=== PATIENT | male | born 1965 | race Caucasian/White ===

== ENCOUNTER 2016-10-21 17:05 | Inpatient (IN) | payer OTHER ==
--- NOTE | ~2016-10-21 | DS ---
Discharge Summary [facility] [address] [place]. [address] NAME: CARMINE QUINTERO : 61 STATUS : DIS IN PAT#: [id number] AGE: 51 ADM/REG DATE : 10/21/16 MR#: [id number] REPORT SERV DATE: 11/12/16 DICTATED BY: FARHAT DOMINGUEZ DATE: 11/11/16 REPORT STATUS : Draft TRANSCRIBED BY: MODMary Ann DATE: 11/11/16 Data Collection from hospitalization DISCHARGE DIAGNOSES: 1. Acute anterolateral ST-elevation myocardial infarction secondary to acute stent thrombosis. 2. Left ventricular thrombus. 3. Ischemic cardiomyopathy. 4. Medication noncompliance. 5. Acute kidney injury. 6. Depression. 7. Tobacco use. 8. Coronary artery disease. CONSULTATIONS: None. PROCEDURES PERFORMED: Cardiac catheterization and percutaneous coronary intervention on 10/21/2016. MEDICATIONS: Aspirin 81 mg daily, Lipitor one tablet at bedtime, Plavix 75 mg daily, Lovenox 120 mg subcutaneously twice a day, Prinivil 5 mg daily, Lopressor 50 mg twice a day, Naprosyn 500 mg twice a day, Nitrostat 0.4 mg sublingually as needed, Zyprexa 15 mg at bedtime, Protonix 40 mg before breakfast, Desyrel 100 mg at bedtime as needed, and Coumadin 7.5 mg every evening. CONDITION AT DISCHARGE: Stable. DISPOSITION: The patient was discharged home on a low-sodium, low-cholesterol Mediterranean diet with activities as instructed. He would follow up with Dr. Won Jimenez on 12/10/2016. He would follow up with me one month following discharge if approved by the MA. He was to have his INR level checked at the [facility] on 10/29/2016. HOSPITAL COURSE: This is a 51-year-old man who had recently undergone percutaneous coronary intervention to the proximal left anterior descending, performed approximately one week prior to this admission by Dr. Stacie Monte. The patient developed substernal chest pain that began on the afternoon prior to this admission and progressively worsened with the abrupt onset of severe chest pain at approximately 1 to 2 o'clock p.m. on the day of this admission. The patient had recently been diagnosed with coronary artery disease. He had a history of depression, but denies any previous cardiovascular history. He was brought by EMS to [facility]. Apparently, there was some type of acute coronary syndrome, although according to his description, he was not actually experiencing a STEMI at that time. However, he was taken for urgent coronary angiography. He was apparently found to have disease of the proximal LAD and a stent was placed in the proximal LAD. The patient reports that he was monitored in the ICU for about three days. He had been discharged home on anti-platelet agents, but the patient reports he did not get the prescription filled due to the expense. He has essentially been on no medications other than aspirin since his hospital discharge from [facility] one week prior to this admission. The patient reports that he had the onset of chest soreness on the day prior to this admission. He did not seek Discharge Summary [address] [address] NAME: CARMINE QUINTERO : 61 STATUS : DIS IN PAT#: [id number] AGE: 51 ADM/REG DATE : 10/21/16 MR#: [id number] REPORT SERV DATE: 11/12/16 DICTATED BY: FARHAT DOMINGUEZ DATE: 11/11/16 REPORT STATUS : Draft TRANSCRIBED BY: SHANAE DATE: 11/11/16 immediate medical attention for this. He reports that the pain waxed and waned overnight, but became continuous at approximately 1:00 p.m. on the day of this admission. He reported the pain had progressively worsened and became severe and unremitting. This prompted a call to EMS. The patient was diagnosed with acute anterior ST-segment elevation myocardial infarction in the field. He was brought to [facility] to undergo primary percutaneous coronary intervention. He was admitted to the hospital at this time for further evaluation and treatment. Upon admission, the patient was taken to the cardiac solder making laborer where he underwent the above- mentioned procedure. He tolerated this well, and there were no complications. He was found to have acute stent thrombosis of the proximal LAD stent, this involved the first diagonal branch. The patient had a left dominant coronary system. No other significant occlusive disease was noted. He had undergone aspiration thrombectomy and intravascular ultrasound imaging of the LAD stent. This was found to be relatively undersized with roughly 3-3.5 mm stent within a 4.5 to 5 mm vessel. The stent was treated with a noncompliant balloon of 4.5 mm diameter to a high-pressure. There was religious of SARAHI grade 2-3 flow through the entire vessel with the exception of the apical LAD. This continued to exhibit no reflow phenomenon. There was evidence of a distal wire perforation on final angiography. Bedside ultrasound approximately one hour following the completion of percutaneous coronary intervention had revealed minimal apical effusion which did not appear to be of hemodynamic significant. There did appear to be significant hypokinesis of the mid and apical anterior myocardium. The patient was loaded with Brilinta. He was going to be continued on aspirin 81 mg daily indefinitely. He was going to be started on atorvastatin at bedtime. Metoprolol was also started. We would consider the addition of lisinopril 24 hours following the percutaneous coronary intervention if his renal function would tolerate this. A transthoracic echocardiogram was requested. Angiomax was discontinued. The patient was strongly encouraged to discontinue cigarette smoking. The following day, he denied any chest pain overnight or that morning. He denied shortness of breath or orthopnea. He had been mildly dyspneic with sitting up. The patient was placed on a low-sodium diet with a 2- liter fluid restriction. On 10/23/2016, INR level was 1.2. The patient had no specific complaints. He has no shortness of breath. He did have some waxing and waning chest pain. He was in a normal sinus rhythm. The patient has an ejection fraction of 35% on echocardiogram. A LifeVest was ordered. Creatinine level had increased to 1.39. On 10/24/2016, he had some chest pain during the night, which resolved. He had no other complaints. Creatinine was 1.26. His lungs remained clear. Warfarin continued. Acute kidney injury was improving. Over the next couple of days, he continued to do well. He still had some waxing and waning chest pressure. He was ambulating without difficulty. Discharge planning was performed. Lisinopril was started. Plavix was going to begin. Lovenox and Coumadin were continued. On 10/26/2016, he had no chest pain or shortness of breath. He had no palpitations. He was alert and cooperative. A LifeVest was placed. Discharge instructions were given. Due to his improved and stable condition, he was discharged home with the above-stated instructions. Information collected by: Marcelle Lopez I submit the above information as my discharge summary. Discharge Summary [facility] [id number] [address] NAME: CARMINE QUINTERO : 61 STATUS : DIS IN PAT#: [id number] AGE: 51 ADM/REG DATE : 10/21/16 MR#: [id number] REPORT SERV DATE: 11/12/16 DICTATED BY: FARHAT DOMINGUEZ DATE: 11/11/16 REPORT STATUS : Draft TRANSCRIBED BY: SHANAE DATE: 11/11/16 TG/SHANAE Farhat Dominguez MD / [id number] CC: Farhat Dominguez MD
--- NOTE | ~2016-10-21 | HP ---
History And Physical [facility] [address] [place]. [address] NAME: CARMINE CEDENO : 61 STATUS : ADM IN [facility]#: [id number] AGE: 51 ADM/REG DATE : 10/21/16 MR#: [id number] REPORT SERV DATE: 10/22/16 DICTATED BY: FARHAT DOMINGUEZ DATE: 10/21/16 REPORT STATUS : Draft TRANSCRIBED BY: MODL DATE: 10/21/16 DATE OF ADMISSION: 10/21/2016 CARDIOLOGY ADMISSION HISTORY AND PHYSICAL IDENTIFYING DATA: The patient is a 51-year-old man with a recent percutaneous coronary intervention to the proximal left anterior descending performed approximately one week ago by Dr. Stacie Monte. CHIEF COMPLAINT: Substernal chest pain starting yesterday afternoon and progressively worsening with abrupt onset of severe chest pain at approximately 1 to 2 o'clock p.m. today. HISTORY OF PRESENT ILLNESS: Mr. Cedeno is a 51-year-old man who was recently diagnosed with coronary heart disease. The patient does have a history of depression, but denies any previous cardiovascular history. The patient was apparently brought by EMS to [facility]. The patient apparently had some type of acute coronary syndrome, though according to his description, he was not actually experiencing a STEMI at that time. However, the patient was taken for urgent coronary angiography. He was apparently found to have disease of the proximal left anterior descending, and a stent was placed in the proximal left anterior descending. The patient reports that he was monitored in the ICU for about three days. He was discharged to home on an anti-platelet agent, but the patient did not get the prescription filled due to expense. He essentially has been on no medications other than aspirin since hospital discharge from [place] about one week ago. The patient reports that he had onset of a chest soreness yesterday. He did not seek immediate medical attention for this. He reports the pain waxed and waned overnight, but became continuous at approximately 1300 hours today. The patient reports that the pain progressively worsened over the next 1 to 2 hours and became severe and unremitting. This prompted a call to emergency medical services. The patient was diagnosed with an acute anterior ST-segment elevation myocardial infarction in the field. He was brought to [facility] to undergo primary percutaneous coronary intervention. PAST MEDICAL HISTORY: Significant for depression and recently diagnosed coronary artery disease as noted above. Otherwise negative. PAST SURGICAL HISTORY: The patient reports he underwent cholecystectomy about 10 years ago. He denies any other significant surgical history. FAMILY HISTORY: The patient denies any significant family history of coronary heart disease or sudden cardiac . SOCIAL HISTORY: The patient is a one-pack per day smoker for 33 years. The patient denies any significant alcohol use. He does use marijuana on occasion. He denies any other recreational drugs. ALLERGIES: THE PATIENT REPORTS NO KNOWN MEDICATION ALLERGIES. History And Physical [address] [address] NAME: CARMINE CEDENO : 61 STATUS : ADM IN PAT#: [id number] AGE: 51 ADM/REG DATE : 10/21/16 MR#: [id number] REPORT SERV DATE: 10/22/16 DICTATED BY: FARHAT DOMINGUEZ DATE: 10/21/16 REPORT STATUS : Draft TRANSCRIBED BY: SHANAE DATE: 10/21/16 HOME MEDICATIONS: These include trazodone, and an antidepressant that the patient cannot remember the name of. REVIEW OF SYSTEMS: A complete 12-system review was performed. This is noncontributory except for the pertinent positives and negatives noted in the history of present illness above. PHYSICAL EXAMINATION: VITAL SIGNS: The patient is afebrile. Blood pressure is approximately 100/65 mmHg, heart rate is 90 beats per minute and regular with frequent ectopy, respirations 20 with oxygen saturation 94% on room air. CONSTITUTIONAL: The patient is an overweight to borderline obese white man, who is extremely uncomfortable on initial presentation, though he was not in acute respiratory distress. EYES: PERRL, EOMI, clear conjunctiva. HEAD/MNT: NCAT with moist mucous membranes and grossly normal hard and soft palate. NECK: Supple with no obvious thyromegaly or lymphadenopathy CARDIOVASCULAR: There is a regular rhythm with a normal S1 and a physiologically split second heart sound. Jugular venous pressure could not be accurately estimated due to the patient's positioning. The patient has a 2+ right radial pulse. PULMONARY: Grossly clear to auscultation bilaterally with no wheezing, rales, or rhonchi. No dullness to percussion. ABDOMINAL: Soft, non-tender, non-distended with no hepatosplenomegaly noted. EXTREMITIES: There is no clubbing, cyanosis, or edema noted. MUSCULOSKELETAL: Grossly normal strength and range of motion in all extremities INTEGUMENTARY: Skin appears intact with no bruises, wounds or active lesions noted NEURO/PSYC: Alert and oriented x3, with no dysarthria, facial droop or lateralizing weakness noted. DIAGNOSTIC DATA: 12-lead EKG: The patient's 12-lead EKG performed by EMS shows an acute anterior ST-segment elevation myocardial infarction. There are almost [address]-segment elevation noted in lead V2 with greater than [address]-segment elevation in lead V3 and V4 and greater than [address] elevation in V5 as well as I and aVL. There is an incomplete right bundle-branch block pattern. There are reciprocal changes noted in the inferior leads. The findings are consistent with an acute anterior ST-segment elevation myocardial infarction. There are Q-waves present in leads V1 through V3 consistent with an evolving anterior myocardial infarction. LABORATORY DATA: Labs are pending at this time. X-ray: An x-ray is pending at this time. Cardiac catheterization: The patient was found to have acute stent thrombosis of his proximal LAD stent. This involved the first diagonal branch. The patient has a left dominant coronary system. There was no other significant occlusive disease noted. The patient underwent aspiration thrombectomy and intravascular ultrasound imaging of his LAD History And Physical [address] [address] NAME: CARMINE CEDENO : 61 STATUS : ADM IN [facility]#: [id number] AGE: 51 ADM/REG DATE : 10/21/16 MR#: [id number] REPORT SERV DATE: 10/22/16 DICTATED BY: FARHAT DOMINGUEZ DATE: 10/21/16 REPORT STATUS : Draft TRANSCRIBED BY: MODMary Ann DATE: 10/21/16 stent. This was found to be relatively undersized, with a roughly 3 to 3.5 mm stent within a 4.5 to 5 mm vessel. The stent was treated with a noncompliant balloon of 4.5 mm diameter to a high-pressure. There was samaritan of SARAHI grade 2 to 3 flow through the entire vessel, with exception of the apical LAD. This continued to exhibit no reflow phenomenon. Of note, there was evidence of a distal wire perforation on final angiography. A bedside ultrasound was performed approximately one hour following completion of the patient's percutaneous coronary intervention. There was a minimal apical effusion which does not appear to be of hemodynamic significance. There does appear to be significant hypokinesis of the mid and apical anterior myocardium. ASSESSMENT AND PLAN: 1. Acute anterolateral myocardial infarction secondary to acute stent thrombosis: The patient has been loaded with Brilinta. He will continue aspirin 81 mg daily indefinitely. He will be started on atorvastatin 40 mg p.o. at bedtime. We will start metoprolol, provided the patient remains hemodynamically stable at a dose of 25 mg twice daily. We will consider addition of lisinopril 24 hours following PCI provided the patient's renal function will tolerate this. 2. Distal wire perforation: We will order a transthoracic echocardiogram tomorrow morning. A stat transthoracic echocardiogram will be obtained should the patient develop unusual dyspnea or worsening chest pain. The patient will continue on Angiomax at 0.25 mg/kg per hour for 2 hours to allow Brilinta to become effective. Angiomax will then be discontinued. 3. Tobacco abuse: The patient will be strongly counseled to discontinue cigarette smoking. JCH/MODL Farhat Dominguez MD / [id number] CC: Farhat Dominguez MD
[2016-10-21 17:23] LABS: BASOPHILS 0.4 %; BASOPHILS ABSOLUTE 0.05 10/3/uL (0.0-0.16); EOSINOPHILS ABSOLUTE 0.14 10/3/uL (0.0-0.53); HEMATOCRIT 45.4 % (40.0-51.0); HEMOGLOBIN 15.8 g/dL (13.6-17.8); IMMATURE GRANULOCYTES ABSOLUTE 0.14 10/3/uL (0.0-0.11); LYMPHOCYTES 15.4 %; LYMPHOCYTES ABSOLUTE 2.17 10/3/uL (0.67-4.30); MEAN CORPUS HGB CONC 34.8 g/dL (32.0-36.0); MEAN CORPUSCULAR HEMOGLOB 28.5 pg (26.0-34.0); MEAN CORPUSCULAR VOLUME 81.8 fL (80-100); MEAN PLATELET VOLUME 10.1 fL (9.2-13.0); MONOCYTES 7.1 %; NEUTROPHILS 75.1 %; PLATELET COUNT 275 10/3/uL (150-400); RBC DISTRIBUTION WIDTH 12.8 % (12.0-16.0); RED CELL COUNT 5.55 10/6/uL (4.7-6.1); WHITE BLOOD CELLS 14.1 10/3/uL (4.5-10.5)
[2016-10-21 17:24] LABS: MANUAL DIFF NO %
[2016-10-21 17:34] LABS: PARTIAL THROMBO TIME 120.5 SEC (22.5-37.2); PROTIME (NOT ORD) 57.2 SEC (12.0-14.5)
[2016-10-21 17:35] LABS: INTERNATIONAL NORMAL RATI 6.6 UNITS (-)
[2016-10-21 17:37] LABS: BUN (BLOOD UREA NITROGEN) 16 MG/DL (6-23); CALCIUM, SERUM 9.1 MG/DL (8.5-10.4); CHLORIDE, SERUM 107 MMOL/L (96-112); CO2 (CARBON DIOXIDE) 20 MMOL/L (24-34); CREATININE 1.27 MG/DL (0.70-1.30); GFR AFRICAN AMERICAN 74 ML/MIN (>=60); GFR NON AFRICAN AMERICAN 64 ML/MIN (>=60); GLUCOSE, SERUM 221 MG/DL (60-99); SODIUM, SERUM 137 MMOL/L (135-148)
[2016-10-21 17:38] LABS: CHEST PAIN PROFILE TAT 0 Hrs 20 Mins; TROPONIN I 1.29 NG/ML (<0.05)
[2016-10-21 20:48] LABS: CKMB INDEX (NOT ORD) 1.9; CPK 415 U/L (0-200)
[2016-10-21] MEDS ORDERED: NAP500 PO (21:35)
[2016-10-21] MEDS ORDERED: ZYPREXA15 MG PO (21:37)
[2016-10-21] MEDS ORDERED: TRAZ100 PO (21:39)
[2016-10-22 04:56] LABS: BASOPHILS 0.2 %; BASOPHILS ABSOLUTE 0.03 10/3/uL (0.0-0.16); EOSINOPHILS 0.3 %; EOSINOPHILS ABSOLUTE 0.04 10/3/uL (0.0-0.53); HEMATOCRIT 47.5 % (40.0-51.0); HEMOGLOBIN 16.8 g/dL (13.6-17.8); IMMATURE GRANULOCYTES 0.8 %; IMMATURE GRANULOCYTES ABSOLUTE 0.12 10/3/uL (0.0-0.11); LYMPHOCYTES 13.9 %; LYMPHOCYTES ABSOLUTE 2.17 10/3/uL (0.67-4.30); MEAN CORPUS HGB CONC 35.4 g/dL (32.0-36.0); MEAN CORPUSCULAR HEMOGLOB 29.3 pg (26.0-34.0); MEAN CORPUSCULAR VOLUME 82.8 fL (80-100); MEAN PLATELET VOLUME 10.2 fL (9.2-13.0); MONOCYTES 8.2 %; MONOCYTES ABSOLUTE 1.29 10/3/uL (0.21-1.20); NEUTROPHILS 76.6 %; NEUTROPHILS ABSOLUTE 12.01 10/3/uL (2.02-8.40); PLATELET COUNT 278 10/3/uL (150-400); RED CELL COUNT 5.74 10/6/uL (4.7-6.1); WHITE BLOOD CELLS 15.7 10/3/uL (4.5-10.5)
[2016-10-22 04:58] LABS: MANUAL DIFF NO %
[2016-10-22 05:19] LABS: BUN (BLOOD UREA NITROGEN) 17 MG/DL (6-23); CALCIUM, SERUM 8.6 MG/DL (8.5-10.4); CHLORIDE, SERUM 104 MMOL/L (96-112); CHOL/HDL RATIO(NOT ORDER) 4.6 (0-5); CHOLESTEROL 164 MG/DL (< 200); CK-MB 532.9 NG/ML; CO2 (CARBON DIOXIDE) 24 MMOL/L (24-34); CPK 5810 U/L (0-200); CREATININE 1.17 MG/DL (0.70-1.30); GFR AFRICAN AMERICAN 82 ML/MIN (>=60); GFR NON AFRICAN AMERICAN 71 ML/MIN (>=60); GLUCOSE, SERUM 231 MG/DL (60-99); HDL CHOLESTEROL 36 MG/DL (> 39); LDL CHOLESTEROL 91 MG/DL (< 130); NON-HDL CHOLESTEROL 128 MG/DL (< 160); POTASSIUM, SERUM 4.3 MMOL/L (3.5-5.3); SODIUM, SERUM 137 MMOL/L (135-148); TRIGLYCERIDE 187 MG/DL (< 150)
[2016-10-22 05:20] LABS: CKMB INDEX (NOT ORD) 9.2
[2016-10-22 06:52] LABS: CREATININE 1.2 MG/DL (0.70-1.30)
[2016-10-22 13:37] LABS: CK-MB 335.7 NG/ML
[2016-10-22 14:08] LABS: CKMB INDEX (NOT ORD) 8.4
[2016-10-22 16:58] LABS: INTERNATIONAL NORMAL RATI 1.2 UNITS (-)
[2016-10-22 16:59] LABS: PROTIME (NOT ORD) 14.8 SEC (12.0-14.5)
[2016-10-22 20:59] LABS: CK-MB 113.2 NG/ML; CKMB INDEX (NOT ORD) 4.4
[2016-10-23 05:16] LABS: INTERNATIONAL NORMAL RATI 1.2 UNITS (-); PROTIME (NOT ORD) 15.2 SEC (12.0-14.5)
[2016-10-23 05:26] LABS: CALCIUM, SERUM 8.6 MG/DL (8.5-10.4); CHLORIDE, SERUM 100 MMOL/L (96-112); CO2 (CARBON DIOXIDE) 24 MMOL/L (24-34); CREATININE 1.39 MG/DL (0.70-1.30); GFR AFRICAN AMERICAN 66 ML/MIN (>=60); GFR NON AFRICAN AMERICAN 57 ML/MIN (>=60); GLUCOSE, SERUM 206 MG/DL (60-99); POTASSIUM, SERUM 3.8 MMOL/L (3.5-5.3); SODIUM, SERUM 132 MMOL/L (135-148)
[2016-10-23 05:27] LABS: BUN (BLOOD UREA NITROGEN) 24 MG/DL (6-23)
[2016-10-24 04:10] LABS: BASOPHILS 0.4 %; BASOPHILS ABSOLUTE 0.05 10/3/uL (0.0-0.16); EOSINOPHILS ABSOLUTE 0.23 10/3/uL (0.0-0.53); HEMATOCRIT 43.1 % (40.0-51.0); HEMOGLOBIN 14.9 g/dL (13.6-17.8); IMMATURE GRANULOCYTES 0.7 %; IMMATURE GRANULOCYTES ABSOLUTE 0.08 10/3/uL (0.0-0.11); LYMPHOCYTES 27.6 %; LYMPHOCYTES ABSOLUTE 3.21 10/3/uL (0.67-4.30); MANUAL DIFF NO %; MEAN CORPUS HGB CONC 34.6 g/dL (32.0-36.0); MEAN CORPUSCULAR HEMOGLOB 28.8 pg (26.0-34.0); MEAN CORPUSCULAR VOLUME 83.2 fL (80-100); MEAN PLATELET VOLUME 10.2 fL (9.2-13.0); MONOCYTES 10.4 %; MONOCYTES ABSOLUTE 1.21 10/3/uL (0.21-1.20); NEUTROPHILS 58.9 %; NEUTROPHILS ABSOLUTE 6.87 10/3/uL (2.02-8.40); PLATELET COUNT 202 10/3/uL (150-400); RED CELL COUNT 5.18 10/6/uL (4.7-6.1); WHITE BLOOD CELLS 11.7 10/3/uL (4.5-10.5)
[2016-10-24 04:12] LABS: INTERNATIONAL NORMAL RATI 1.3 UNITS (-); PROTIME (NOT ORD) 16.1 SEC (12.0-14.5)
[2016-10-24 04:23] LABS: BUN (BLOOD UREA NITROGEN) 25 MG/DL (6-23); CALCIUM, SERUM 8.4 MG/DL (8.5-10.4); CHLORIDE, SERUM 101 MMOL/L (96-112); CO2 (CARBON DIOXIDE) 28 MMOL/L (24-34); CREATININE 1.26 MG/DL (0.70-1.30); GFR AFRICAN AMERICAN 74 ML/MIN (>=60); GFR NON AFRICAN AMERICAN 64 ML/MIN (>=60); POTASSIUM, SERUM 3.6 MMOL/L (3.5-5.3); SODIUM, SERUM 135 MMOL/L (135-148)
[2016-10-24 04:24] LABS: GLUCOSE, SERUM 155 MG/DL (60-99)
[2016-10-25 05:18] LABS: HEMATOCRIT 42.6 % (40.0-51.0); HEMOGLOBIN 14.6 g/dL (13.6-17.8); MEAN CORPUS HGB CONC 34.3 g/dL (32.0-36.0); MEAN CORPUSCULAR HEMOGLOB 28.7 pg (26.0-34.0); MEAN CORPUSCULAR VOLUME 83.9 fL (80-100); MEAN PLATELET VOLUME 10.2 fL (9.2-13.0); PLATELET COUNT 217 10/3/uL (150-400); RBC DISTRIBUTION WIDTH 12.5 % (12.0-16.0); RED CELL COUNT 5.08 10/6/uL (4.7-6.1); WHITE BLOOD CELLS 10.6 10/3/uL (4.5-10.5)
[2016-10-25 05:24] LABS: MANUAL DIFF YES %
[2016-10-25 05:41] LABS: CALCIUM, SERUM 8.6 MG/DL (8.5-10.4); CHLORIDE, SERUM 101 MMOL/L (96-112); CO2 (CARBON DIOXIDE) 24 MMOL/L (24-34); CREATININE 1.18 MG/DL (0.70-1.30); GFR AFRICAN AMERICAN 81 ML/MIN (>=60); GFR NON AFRICAN AMERICAN 70 ML/MIN (>=60); GLUCOSE, SERUM 154 MG/DL (60-99); POTASSIUM, SERUM 3.8 MMOL/L (3.5-5.3); SODIUM, SERUM 132 MMOL/L (135-148)
[2016-10-25 05:42] LABS: BUN (BLOOD UREA NITROGEN) 19 MG/DL (6-23)
[2016-10-25 05:49] LABS: BAND NEUTROPHILS 7 %; EOSINOPHILS 3 %; EOSINOPHILS ABSOLUTE (CALC) 0.32 10/3/uL (0.0-0.53); LYMPHOCYTES 26 %; LYMPHOCYTES ABSOLUTE (CALC) 2.76 10/3/uL (0.67-4.30); MONOCYTES 10 %; MONOCYTES ABSOLUTE (CALC) 1.06 10/3/uL (0.21-1.20); NEUTROPHILS ABSOLUTE (CALC) 6.47 10/3/uL (2.02-8.40); PLATELET ESTIMATE ADQ (ADEQUATE); RBC MORPHOLOGY NORM (NORMAL); SEGMENTED NEUTROPHIL (0) 54 %; TOTAL NUCLEATED CELLS 100
[2016-10-25 07:52] LABS: INTERNATIONAL NORMAL RATI 1.7 UNITS (-)
[2016-10-25 07:56] LABS: PROTIME (NOT ORD) 19.6 SEC (12.0-14.5)
[2016-10-26 04:38] LABS: BASOPHILS 0.7 %; BASOPHILS ABSOLUTE 0.08 10/3/uL (0.0-0.16); EOSINOPHILS 2.9 %; EOSINOPHILS ABSOLUTE 0.31 10/3/uL (0.0-0.53); HEMATOCRIT 42.9 % (40.0-51.0); HEMOGLOBIN 14.8 g/dL (13.6-17.8); IMMATURE GRANULOCYTES 0.5 %; IMMATURE GRANULOCYTES ABSOLUTE 0.05 10/3/uL (0.0-0.11); LYMPHOCYTES 31.9 %; LYMPHOCYTES ABSOLUTE 3.42 10/3/uL (0.67-4.30); MEAN CORPUS HGB CONC 34.5 g/dL (32.0-36.0); MEAN CORPUSCULAR HEMOGLOB 28.6 pg (26.0-34.0); MEAN PLATELET VOLUME 10.3 fL (9.2-13.0); MONOCYTES 10.4 %; MONOCYTES ABSOLUTE 1.11 10/3/uL (0.21-1.20); NEUTROPHILS 53.6 %; NEUTROPHILS ABSOLUTE 5.75 10/3/uL (2.02-8.40); PLATELET COUNT 199 10/3/uL (150-400); RBC DISTRIBUTION WIDTH 12.8 % (12.0-16.0); RED CELL COUNT 5.17 10/6/uL (4.7-6.1); WHITE BLOOD CELLS 10.7 10/3/uL (4.5-10.5)
[2016-10-26 04:41] LABS: MANUAL DIFF NO %
[2016-10-26 04:44] LABS: INTERNATIONAL NORMAL RATI 1.8 UNITS (-); PROTIME (NOT ORD) 20.9 SEC (12.0-14.5)
[2016-10-26 04:53] LABS: BUN (BLOOD UREA NITROGEN) 16 MG/DL (6-23); CALCIUM, SERUM 9.1 MG/DL (8.5-10.4); CHLORIDE, SERUM 101 MMOL/L (96-112); CO2 (CARBON DIOXIDE) 25 MMOL/L (24-34); CREATININE 1.29 MG/DL (0.70-1.30); GFR AFRICAN AMERICAN 72 ML/MIN (>=60); GFR NON AFRICAN AMERICAN 62 ML/MIN (>=60); GLUCOSE, SERUM 151 MG/DL (60-99); POTASSIUM, SERUM 4.2 MMOL/L (3.5-5.3); SODIUM, SERUM 132 MMOL/L (135-148)
[2016-10-26] MEDS ORDERED: COUMADIN7.5 MG PO (15:28)
[2016-10-26] MEDS ORDERED: PLAVIX PO (15:29)
[2016-10-26] MEDS ORDERED: PRIN5 PO (15:29)
[2016-10-26] MEDS ORDERED: LOP50 PO (15:31)
[2016-10-26] MEDS ORDERED: LOVENOX120 SC (15:32)
[2016-10-26] MEDS ORDERED: NITROSTAT0.4 MG SL (15:32)
[2016-10-26] MEDS ORDERED: LIPITOR40 (15:33)
[2016-10-26] MEDS ORDERED: ASAB PO (15:33)
[2016-10-26] MEDS ORDERED: PROTONIX PO (15:33)
[2016-11-26] MEDS ORDERED: ASAB PO (23:07)
[2016-11-26] MEDS ORDERED: LIPITOR40 PO (23:08)
[2016-11-26] MEDS ORDERED: LOP25 PO (23:08)
[2016-11-26] MEDS ORDERED: L20 PO (23:08)
[2016-11-26] MEDS ORDERED: GLUCOPHAGE1000 MG PO (23:08)
[2016-11-26] MEDS ORDERED: SPIRO25 PO (23:08)
[2016-11-26] MEDS ORDERED: *UNABLE3 (23:10)
[2016-11-27] MEDS ORDERED: PRIN5 PO (12:56)
[2016-11-27] MEDS ORDERED: PLAVIX PO (12:56)
[2016-11-27] MEDS ORDERED: COUMADIN7.5 MG PO (12:57)
[2016-12-02] MEDS ORDERED: C25 PO (14:47)
== END 2016-10-26 18:31 | disposition home or self-care (01) | DRG 250 ==
LOC: SSU2 17:05 → CCU 19:41 → 5NO 10-24 19:44
PROVIDERS: Internal Medicine Cardiovascular Disease; Nurse Practitioner Family
DX: T82.867A Thrombosis due to cardiac prosthetic devices, implants and grafts, initial encounter (principal); I21.09 ST elevation (STEMI) myocardial infarction involving other coronary artery of anterior wall; T82.598A Other mechanical complication of other cardiac and vascular devices and implants, initial encounter; I25.10 Atherosclerotic heart disease of native coronary artery without angina pectoris; Z72.0 Tobacco use; Z98.890 Other specified postprocedural states; F32.9 Major depressive disorder, single episode, unspecified; Z91.120 Patient's intentional underdosing of medication regimen due to financial hardship; T45.526A Underdosing of antithrombotic drugs, initial encounter
CPT/HCPCS: 71010; 80048; 80061; 82550; 82553; 82565; 83735; 84132; 84295; 84484; 85025; 85610; 85730; 87641; 92978; 93005; 93306; 93458; 99152; 99153; A9270-GY; C1725; C1753; C1757; C1769; C1887; C1894; C8929; C9606; J0583; J1940; J2250; J2405; J3010; Q9957; Q9967

== ENCOUNTER 2016-10-28 02:04 | Inpatient (IN) | payer OTHER ==
--- NOTE | ~2016-10-28 | HP ---
History And Physical [facility] [address] [place]. [address] NAME: CARMINE QUINTERO : 61 STATUS : ADM IN [facility]#: [id number] AGE: 51 ADM/REG DATE : 10/28/16 MR#: [id number] REPORT SERV DATE: 10/28/16 DICTATED BY: SOFIA GRANT DATE: 10/28/16 REPORT STATUS : Draft TRANSCRIBED BY: MODL DATE: 10/28/16 DATE OF ADMISSION: 10/28/2016 CHIEF COMPLAINT: A 51-year-old male presenting with recurrent chest pain and shortness of breath. HISTORY OF PRESENTING ILLNESS: The patient's history was obtained through an interview with the patient, coupled with review of [facility] and [facility] medical records. The patient's recent history really begins in the first week of October when he developed chest pain and went to [facility]. He was thought to have an acute coronary syndrome at that time and underwent a catheterization of the heart with a stent placed to the proximal LAD. He is able to be discharged in stable condition, but apparently, had developed chest pain once again, but this time, presented to [facility] on 10/21/2016. At that time, there was evidence of an ST elevation myocardial infarction and acute coronary syndrome once again, he was evaluated and admitted to the hospital by Dr. Dominguez, general operations agent, underwent a catheterization of the heart that showed an acute re- stenosis of his proximal LAD stent. This was able to be cleared by catheterization of the heart, but it was thought that part of the problem was that the stent placed was "too small" for the size of the patient's LAD vessel. Also, noted in the catheterization details were that a small wire perforation of the distal LAD occurred. It was thought that the patient should be placed on Plavix or Brilinta, possibly indefinitely because of this occurrence. When the patient was admitted on 10/21/2016 and 10/22/2016, his troponin was elevated up to 140. He was finally able to be discharged on 10/26/2016 and at that time states that he was feeling very good. He has been home for two days, but then late on the night of 10/27/2016 around 10:30 or 11, he began to feel uncomfortable again as if his chest pain was recurring. He describes the pain is in the middle of his chest, a heaviness without much radiation, 9/10 severity, associated with increasing shortness of breath. This prompted him to come back to the hospital. It should also be noted that during recent hospitalization the patient was found to have an apical thrombus on echocardiogram, and for this reason, he was started on Coumadin with bridging doses of Lovenox. He states that he did not start taking these prescription medications until the evening of 10/27/2016. There has been no lower extremity edema or lower extremity cramps or other symptoms. No abdominal pain, but he has had nausea, no vomiting. REVIEW OF SYSTEMS: Otherwise, a 14-point review of systems was obtained and was negative. PAST MEDICAL HISTORY: 1. Coronary artery disease, as mentioned above, with a proximal LAD stent placement. History And Physical [address] [address] NAME: CARMINE QUINTERO : 61 STATUS : ADM IN [facility]#: [id number] AGE: 51 ADM/REG DATE : 10/28/16 MR#: [id number] REPORT SERV DATE: 10/28/16 DICTATED BY: SOFIA GRANT DATE: 10/28/16 REPORT STATUS : Draft TRANSCRIBED BY: SHANAE DATE: 10/28/16 2. Depression. 3. Chronic kidney disease, stage 3. Baseline creatinine of 1.2 to 1.4. 4. Systolic congestive heart failure. Ejection fraction 35% with diastolic dysfunction and apical thrombus, 10/22/2016. PAST SURGICAL HISTORY: 1. Hernia repair. 2. Cholecystectomy. 3. Appendectomy. ALLERGIES: NO KNOWN DRUG ALLERGIES. SOCIAL HISTORY: The patient smokes cigarettes. Drinks occasional alcohol. He is to his male partner, Steven Horton. He lives in [place], [place]. He is of Confucianism heritage and lara. He grew up most of his life going to [place]-speaking schools in [place]. 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 FAMILY HISTORY: No heart disease. No blood clots. No diabetes. No stroke. The patient claims that his family is actually quite healthy. CURRENT MEDICATIONS: Include aspirin 81 mg p.o. daily; Lipitor 40 mg p.o. daily; Plavix 75 mg p.o. daily; Lovenox 120 mg subcutaneous twice a day; lisinopril 5 mg p.o. daily; metoprolol 50 mg p.o. b.i.d.; naproxen, holding this medication; nitroglycerin as needed; Zyprexa 15 mg p.o. q.h.s., Protonix 40 mg p.o. daily, trazodone 100 mg p.o. q.h.s., Coumadin 7.5 mg in the evening. PHYSICAL EXAMINATION: VITAL SIGNS: Temperature 98.3, pulse 108, blood pressure 90/59, respiratory rate 36, O2 saturation 92% on 2 L nasal cannula. GENERAL: An ill-appearing male, in evidence of the distress, but he does not appear toxic or critical. He has shortness of breath. HEENT: Pupils equal, round, and reactive to light. No conjunctival pallor. No scleral icterus. Nares are patent. Oropharynx is clear of obstruction. Moist mucous membranes. NECK: Trachea midline. No thyromegaly. LYMPH: No cervical lymphadenopathy. No supraclavicular lymphadenopathy. RESPIRATORY: The patient does have wet rales at the base of lungs. No wheezes, no rhonchi. A labored respiratory effort. CARDIOVASCULAR: Tachycardic. Regular rhythm. No murmurs, rubs, or gallops. No current extremity edema can be appreciated. ABDOMEN: Soft, nontender, nondistended. Normal bowel tones auscultated throughout. No hepatosplenomegaly. DERMATOLOGICAL: Warm and dry extremities. No pallor. No cyanosis. PSYCHIATRIC: Anxious affect and mood. Alert and oriented x3. LABORATORY DATA: Troponin 5.12, but this has obviously decreased from 140 on 10/22/2016. History And Physical [address] [address] NAME: CARMINE QUINTERO : 61 STATUS : ADM IN [facility]#: [id number] AGE: 51 ADM/REG DATE : 10/28/16 MR#: [id number] REPORT SERV DATE: 10/28/16 DICTATED BY: SOFIA GRANT DATE: 10/28/16 REPORT STATUS : Draft TRANSCRIBED BY: MODL DATE: 10/28/16 Brain natriuretic peptide 459. INR 1.8. White blood cell count 9.0, hemoglobin 13, hematocrit 38, platelets 233. Sodium 138, potassium 4.1, chloride 106, bicarb 21, BUN 18, creatinine 1.35, glucose 307. ABG demonstrates a pH of 7.41, a PaCO2 of 31, a PaO2 of 62, and a bicarb of 19 on 2 L nasal cannula. STUDIES: 1. CT angiogram of the chest shows right pulmonary embolism, also evidence of volume overload. 2. EKG by my own evaluation shows stable ST elevation V1 through V4 compared to EKGs within the last week. ASSESSMENT AND PLAN: 1. Acute pulmonary embolism. Place on heparin drip IV. Recheck an echocardiogram to rule out progressive right ventricular strain. 2. Hypoxic respiratory failure. Provide supportive care. 3. Shock. Possibly from new cardiac medications. The patient is having difficulty tolerating. We will write parameters for these medicines and monitor closely. 4. Systolic congestive heart failure exacerbation. Ejection fraction 35% with evidence of volume overload now, careful diuresis. 5. Elevated troponin. Troponin of 140 on 10/22/2016, now at 5.12, so this might be a natural decrease in troponin over five days. We will consult Dr. Dominguez, general operations agent. The case was reviewed in the emergency department with Dr. Garner, on Plavix and aspirin. 6. Hyperglycemia. Check hemoglobin A1c. Obtain a commercial property administrator consult and placed on sliding scale insulin. KPL/MODL Sofia Grant M.D. / [id number] CC: Abram Teran MD
--- NOTE | ~2016-10-28 | CN ---
Consultation Report [facility] [address] [place]. [address] NAME: CARMINE CDEENO : 61 STATUS : ADM IN PAT#: [id number] AGE: 51 ADM/REG DATE : 10/28/16 MR#: [id number] REPORT SERV DATE: 10/29/16 DICTATED BY: FARHAT DOMINGUEZ DATE: 10/28/16 REPORT STATUS : Draft TRANSCRIBED BY: MODL DATE: 10/28/16 CARDIOLOGY CONSULTATION NOTE DATE OF CONSULTATION: 10/28/2016 REASON FOR CONSULTATION: Chest pain and dyspnea in a 51-year-old man with recent extensive myocardial infarction secondary to acute stent thrombosis of a previously placed stent in the proximal left anterior descending. HISTORY OF PRESENT ILLNESS: Mr. Cedeno is a 51-year-old man, who is admitted to [facility] last week after suffering an acute anterolateral ST-segment elevation myocardial infarction. This occurred due to acute stent thrombosis of a previously placed stent in the proximal LAD. The patient had previously been seen at [facility], apparently for an acute coronary syndrome. The patient had an LAD stent placed and was placed on Brilinta for anti-platelet therapy. The patient was unable to afford this and did not contact his day care home mother before completely discontinuing all of his cardiovascular medications. The patient suffered acute stent thrombosis with a very large anterolateral myocardial infarction, approximately four days after his discharge from [facility]. The patient was hospitalized for approximately a week after his myocardial infarction. He was discharged several days ago with his old defibrillator vest. The patient reports that defibrillator vest has been alarming. He has also noticed worsening dyspnea on exertion and orthopnea. The patient had an episode of chest pain earlier today and therefore presented to [facility] for further evaluation. The patient had a CT scan of the chest. Apparently, this was originally read as positive for pulmonary embolism. However, the final read demonstrates no pulmonary embolism. Of note, the patient was found to have an LV apical thrombus on his echocardiogram and has been treated with Coumadin and Lovenox since hospital discharge. PAST MEDICAL HISTORY: 1. Coronary artery disease with recent myocardial infarction as noted above. 2. Ischemic cardiomyopathy with ejection fraction of 35%. 3. Depression. PAST SURGICAL HISTORY: The patient has had previous cholecystectomy. He has had two recent percutaneous coronary interventions as outlined above. FAMILY HISTORY: Negative for sudden cardiac or early coronary heart disease. SOCIAL HISTORY: The patient is a one pack per day times 33-year smoker. He denies alcohol use. He uses marijuana on occasion. He denies the use of any other recreational drugs. ALLERGIES: THE PATIENT REPORTS NO KNOWN MEDICATION ALLERGIES. HOME MEDICATIONS: Consultation Report [address] [place]. [address] NAME: CARMINE CEDENO : 61 STATUS : ADM IN PAT#: [id number] AGE: 51 ADM/REG DATE : 10/28/16 MR#: [id number] REPORT SERV DATE: 10/29/16 DICTATED BY: FARHAT DOMINGUEZ DATE: 10/28/16 REPORT STATUS : Draft TRANSCRIBED BY: SHANAE DATE: 10/28/16 1. Aspirin 81 mg p.o. daily. 2. Atorvastatin 40 mg p.o. q.h.s. 3. Plavix 75 mg daily. 4. Lovenox 120 mg subcutaneously twice daily until INR greater than or equal to 2.0. 5. Lisinopril 5 mg p.o. daily. 6. Metoprolol tartrate 50 mg p.o. twice daily. 7. Naprosyn 500 mg twice daily-this has been on hold since the patient's recent myocardial infarction. 8. Nitroglycerin 0.4 mg sublingual q.5 minutes p.r.n. chest pain. 9. Zyprexa 15 mg p.o. q.h.s. 10.Pantoprazole 40 mg p.o. q.a.m. 11.Trazodone 100 mg p.o. q.h.s. 12.Coumadin 7.5 mg p.o. daily. REVIEW OF SYSTEMS: A complete 12-system review was performed. This is noncontributory, except for the pertinent positives and negatives noted in the history of present illness above. PHYSICAL EXAMINATION: VITAL SIGNS: Temperature is 98.8 degrees Fahrenheit, blood pressure is 103/57 mmHg, heart rate is 98 beats per minute and regular, respirations 16, oxygen saturation is 96% on a 3 L nasal cannula. CONSTITUTIONAL: The patient is an obese white man, who is currently in no acute distress. EYES: PERRL, EOMI, clear conjunctiva. HEAD/MNT: NCAT with moist mucous membranes and grossly normal hard and soft palate. NECK: Supple with no obvious thyromegaly or lymphadenopathy. CARDIOVASCULAR: There is a regular rhythm with a normal S1 and a physiologically split second heart sound. An S3 gallop is noted. The jugular venous pressure appears to be normal at approximately 7 cm. PULMONARY: There are scattered rales noted in the posterior lung bases. No significant wheezing is noted. There is no dullness to percussion. ABDOMINAL: Soft, nontender, nondistended with no hepatosplenomegaly noted. EXTREMITIES: No clubbing, cyanosis, or edema. MUSCULOSKELETAL: Grossly normal strength and range of motion in all extremities. INTEGUMENTARY: Skin appears intact with no bruises, wounds or active lesions noted. NEURO/PSYC: Alert and oriented x3, with no dysarthria, facial droop or lateralizing weakness noted. 12-lead EKG: The 12-lead EKG shows normal sinus rhythm with changes of evolving anteroseptal and anterolateral myocardial infarction. Chest x-ray: The patient's portable chest x-ray is consistent with [id number] pulmonary edema. LABORATORY: White blood cell count is 11.4, hemoglobin 13.3, hematocrit 39.2, platelets 230. Consultation Report [place] [id number] [facility] [place]. [address] NAME: CARMINE CEDENO : 61 STATUS : ADM IN [facility]#: [id number] AGE: 51 ADM/REG DATE : 10/28/16 MR#: [id number] REPORT SERV DATE: 10/29/16 DICTATED BY: FARHAT DOMINGUEZ DATE: 10/28/16 REPORT STATUS : Draft TRANSCRIBED BY: MODMary Ann DATE: 10/28/16 Metabolic profile shows a sodium of 136, potassium 4.4, chloride is 104, CO2 is 25, BUN 14, creatinine is 1.2, glucose 263, albumin is 2.8. A B-type natriuretic peptide is elevated at 542. Hemoglobin A1c is elevated at 9.3. The patient's troponin I is elevated at 5.72. ASSESSMENT AND PLAN: 1. Acute systolic congestive heart failure: The patient was not exhibiting signs or symptoms of congestive heart failure at the time of recent hospital discharge. However, the patient appears to have developed heart failure and this is unsurprising given the patient's recent extensive anterolateral myocardial infarction. I would not recommend that the patient's lisinopril or metoprolol be held unless the patient is having symptomatic hypotension or a mean arterial pressure less than 65 mmHg. We will restart metoprolol tartrate 25 mg p.o. twice daily and increase back to 50 mg daily if tolerated. The patient will restart lisinopril 5 mg daily. We will start Aldactone 25 mg daily. The patient will be started on Lasix 40 mg IV q.12 hours as needed. Once the patient's dyspnea has improved, then he can lie flat comfortably, it would be reasonable to discharge the patient home on Aldactone and a low dose of oral Lasix. 2. Coronary artery disease: Continue aspirin and Plavix. The patient's elevated troponin is most likely residual from his recent large myocardial infarction. The patient's EKG is consistent with an evolving anterolateral myocardial infarction. We would not recommend any further invasive workup at this time. 3. Left ventricular apical thrombus: The patient will continue Coumadin. We will recheck an INR tomorrow. If this is greater than or equal to 2.0, the heparin drip may be discontinued. Thank you for allowing me to participate in the care of Mr. Cedeno. The Cardiology Service will continue to follow the patient during this admission. KAYLEIGHH/SHANAE Farhat Dominguez MD / [id number] CC: Arpit Diaz M.D.
--- NOTE | ~2016-10-28 | DS ---
Discharge Summary [facility] [place] [id number] [place] [address] NAME: CARMINE QUINTERO : 61 STATUS : ADM IN PAT#: [id number] AGE: 51 ADM/REG DATE : 10/28/16 MR#: [id number] REPORT SERV DATE: 10/29/16 DICTATED BY: Arpit MARTINEZ DATE: 10/29/16 REPORT STATUS : Draft TRANSCRIBED BY: SHANAE DATE: 10/29/16 ADMISSION DATE: 10/28/2016 DISCHARGE DATE: 10/29/2016 DIAGNOSES AT DISCHARGE: 1. Acute on chronic systolic heart failure, resolved. 2. Coronary disease with stents, on dual anti-platelet therapy. 3. Left ventricular thrombus, on chronic Coumadin therapy. 4. Chronic kidney disease stage 2. 5. Type 2 diabetes. A1c 9.3. CONSULTS: Cardiology. PROCEDURES: None. BRIEF SUMMARY: A 51-year-old male patient with recent in-stent thrombosis, status post cardiac catheterization, discharged 48 hours ago, who presents with recurrent shortness of breath. Originally, it was reported as a PE in the emergency room; however, further review of CTA shows the study to be normal. He was started on a heparin drip. However, his INR was only 1.8, and he does have a known left ventricular thrombus. The following day, his INR was 2.0 and the heparin was discontinued. He responded very well to IV diuresis and was felt stable to discharge home the following day on his current medical therapy. Of note, he had been hyperglycemic. His hemoglobin A1c was checked and found to be 9.3. He was evaluated by diabetes education and will be placed on a diabetic diet and started on metformin a 1000 mg b.i.d. The patient will keep his current follow up with the [facility] for PT and INR checks as well as ongoing medical therapy. Prescriptions for his metformin as well as his other cardiac medicines are provided on the chart. Further recommendations pending outpatient followup with the [facility]. Of note, 30 minutes was required to extension course counselor the patient regarding his diabetes, prepare discharge documents, and write discharge prescriptions. DICTATED BY: Abram Teran/SHANAE Arpit Martinez M.D. / [id number] CC: Arpit Martinez M.D.
[2016-10-28 01:41] LABS: BASOPHILS 0.4 %; BASOPHILS ABSOLUTE 0.04 10/3/uL (0.0-0.16); EOSINOPHILS 3.4 %; EOSINOPHILS ABSOLUTE 0.31 10/3/uL (0.0-0.53); HEMOGLOBIN 13.1 g/dL (13.6-17.8); IMMATURE GRANULOCYTES 0.7 %; IMMATURE GRANULOCYTES ABSOLUTE 0.06 10/3/uL (0.0-0.11); LYMPHOCYTES 31.7 %; LYMPHOCYTES ABSOLUTE 2.86 10/3/uL (0.67-4.30); MEAN CORPUS HGB CONC 34.7 g/dL (32.0-36.0); MEAN CORPUSCULAR HEMOGLOB 28.9 pg (26.0-34.0); MEAN CORPUSCULAR VOLUME 83.3 fL (80-100); MEAN PLATELET VOLUME 10.7 fL (9.2-13.0); MONOCYTES 8.2 %; MONOCYTES ABSOLUTE 0.74 10/3/uL (0.21-1.20); NEUTROPHILS 55.6 %; NEUTROPHILS ABSOLUTE 5.02 10/3/uL (2.02-8.40); PLATELET COUNT 233 10/3/uL (150-400); RBC DISTRIBUTION WIDTH 12.6 % (12.0-16.0); RED CELL COUNT 4.54 10/6/uL (4.7-6.1)
[2016-10-28 01:42] LABS: HEMATOCRIT 37.8 % (40.0-51.0); MANUAL DIFF NO %
[2016-10-28 01:49] LABS: INTERNATIONAL NORMAL RATI 1.8 UNITS (-); PARTIAL THROMBO TIME 44.5 SEC (22.5-37.2); PROTIME (NOT ORD) 20.5 SEC (12.0-14.5)
[2016-10-28 01:58] LABS: BUN (BLOOD UREA NITROGEN) 18 MG/DL (6-23); CALCIUM, SERUM 8.4 MG/DL (8.5-10.4); CHLORIDE, SERUM 106 MMOL/L (96-112); CO2 (CARBON DIOXIDE) 21 MMOL/L (24-34); CREATININE 1.35 MG/DL (0.70-1.30); GFR AFRICAN AMERICAN 69 ML/MIN (>=60); GFR NON AFRICAN AMERICAN 60 ML/MIN (>=60); POTASSIUM, SERUM 4.1 MMOL/L (3.5-5.3); SODIUM, SERUM 138 MMOL/L (135-148)
[2016-10-28 02:00] LABS: GLUCOSE, SERUM 317 MG/DL (60-99)
[2016-10-28 02:01] LABS: CHEST PAIN PROFILE TAT 0 Hrs 24 Mins; TROPONIN I 5.12 NG/ML (<0.05)
[~2016-10-28 02:04] MED LIST: ASAB PO; COUMADIN7.5 MG PO; LIPITOR40; LOP50 PO; LOVENOX120 SC; NAP500 PO; NITROSTAT0.4 MG SL; PLAVIX PO; PRIN5 PO; PROTONIX PO; TRAZ100 PO; ZYPREXA15 MG PO
[2016-10-28] MEDS ORDERED: LIPITOR40 PO (03:50)
[2016-10-28] MEDS ORDERED: ASAB PO (03:50)
[2016-10-28] MEDS ORDERED: PLAVIX PO (03:50)
[2016-10-28] MEDS ORDERED: LOVENOX120 SC (03:50)
[2016-10-28] MEDS ORDERED: PROTONIX PO (03:51)
[2016-10-28] MEDS ORDERED: LOP50 PO (03:51)
[2016-10-28] MEDS ORDERED: PRIN5 PO (03:51)
[2016-10-28] MEDS ORDERED: NITROSTAT0.4 MG SL (03:51)
[2016-10-28] MEDS ORDERED: NAP500 PO (03:51)
[2016-10-28] MEDS ORDERED: TRAZ100 PO (03:52)
[2016-10-28] MEDS ORDERED: COUMADIN7.5 MG PO (03:52)
[2016-10-28] MEDS ORDERED: ZYPREXA15 MG PO (03:54)
[2016-10-28 04:19] LABS: ALLENS TEST Pos; BE (BASE EXCESS) -4.1 MEQ/L (0 +/- 2.5); DEVICE NC; HCO3 (ACTUAL BICARBONATE) 19.4 MEQ/L (23-27); HEMOBLOGIN CONTENT 13.7 G/DL (14-18); INSTRUMENT SERIAL # 8087; METHEMOGLOBIN 0.2 % (0-3); O2 CONTENT 17.3 VOL% (18-24); OPERATOR ID 33449; PCO2 (CO2 TENSION) 31 MMHG (35-45); PO2 (O2 TENSION) 63 MMHG (79-93); SAMPLE Arterial; pH 7.41 (7.37-7.43)
[2016-10-28 11:58] LABS: BASOPHILS 0.4 %; BASOPHILS ABSOLUTE 0.05 10/3/uL (0.0-0.16); EOSINOPHILS 1.9 %; EOSINOPHILS ABSOLUTE 0.21 10/3/uL (0.0-0.53); HEMATOCRIT 39.2 % (40.0-51.0); HEMOGLOBIN 13.3 g/dL (13.6-17.8); IMMATURE GRANULOCYTES 0.6 %; IMMATURE GRANULOCYTES ABSOLUTE 0.07 10/3/uL (0.0-0.11); LYMPHOCYTES 24.6 %; LYMPHOCYTES ABSOLUTE 2.79 10/3/uL (0.67-4.30); MANUAL DIFF NO %; MEAN CORPUS HGB CONC 33.9 g/dL (32.0-36.0); MEAN CORPUSCULAR HEMOGLOB 28.5 pg (26.0-34.0); MEAN CORPUSCULAR VOLUME 83.9 fL (80-100); MEAN PLATELET VOLUME 10.4 fL (9.2-13.0); MONOCYTES 7.5 %; MONOCYTES ABSOLUTE 0.85 10/3/uL (0.21-1.20); NEUTROPHILS ABSOLUTE 7.38 10/3/uL (2.02-8.40); PLATELET COUNT 230 10/3/uL (150-400); RED CELL COUNT 4.67 10/6/uL (4.7-6.1); WHITE BLOOD CELLS 11.4 10/3/uL (4.5-10.5)
[2016-10-28 12:04] LABS: PARTIAL THROMBO TIME 70.6 SEC (22.5-37.2); PROTIME (NOT ORD) 22.2 SEC (12.0-14.5)
[2016-10-28 12:17] LABS: A/G RATIO 0.7 (0.7-1.9); ALBUMIN 2.8 G/DL (3.5-5.0); ALKALINE PHOSPHATASE 121 U/L (45-117); CALCIUM, SERUM 8.5 MG/DL (8.5-10.4); CHLORIDE, SERUM 104 MMOL/L (96-112); CO2 (CARBON DIOXIDE) 25 MMOL/L (24-34); CREATININE 1.17 MG/DL (0.70-1.30); GFR AFRICAN AMERICAN 82 ML/MIN (>=60); GFR NON AFRICAN AMERICAN 71 ML/MIN (>=60); GLUCOSE, SERUM 263 MG/DL (60-99); PHOSPHORUS, SERUM 3.1 MG/DL (2.5-4.5); POTASSIUM, SERUM 4.4 MMOL/L (3.5-5.3); SGOT(AST) 32 U/L (5-40); SGPT(ALT) 40 U/L (5-65); SODIUM, SERUM 136 MMOL/L (135-148); TOTAL BILIRUBIN 0.3 MG/DL (0-1.2); TOTAL PROTEIN 6.8 G/DL (6.0-8.5)
[2016-10-28 12:18] LABS: BUN (BLOOD UREA NITROGEN) 14 MG/DL (6-23)
[2016-10-28 13:48] LABS: GLYCOHEMOGLOBIN (HbA1c) 9.3 % (4.7-6.1)
[2016-10-29 04:44] LABS: PROTIME (NOT ORD) 22.3 SEC (12.0-14.5)
[2016-10-29 05:00] LABS: BUN (BLOOD UREA NITROGEN) 14 MG/DL (6-23); CALCIUM, SERUM 8.9 MG/DL (8.5-10.4); CHLORIDE, SERUM 104 MMOL/L (96-112); CO2 (CARBON DIOXIDE) 25 MMOL/L (24-34); CREATININE 1.14 MG/DL (0.70-1.30); GFR AFRICAN AMERICAN 85 ML/MIN (>=60); GFR NON AFRICAN AMERICAN 73 ML/MIN (>=60); POTASSIUM, SERUM 4.1 MMOL/L (3.5-5.3); SODIUM, SERUM 137 MMOL/L (135-148)
[2016-10-29 05:01] LABS: GLUCOSE, SERUM 165 MG/DL (60-99)
[2016-10-29] MEDS ORDERED: L20 PO (14:28)
[2016-10-29] MEDS ORDERED: LOP25 PO (14:28)
[2016-10-29] MEDS ORDERED: GLUCOPHAGE1000 MG PO (14:30)
[2016-10-29] MEDS ORDERED: SPIRO25 PO (14:30)
[2016-11-26] MEDS ORDERED: ASAB PO (23:07)
[2016-11-26] MEDS ORDERED: SPIRO25 PO (23:08)
[2016-11-26] MEDS ORDERED: GLUCOPHAGE1000 MG PO (23:08)
[2016-11-26] MEDS ORDERED: LOP25 PO (23:08)
[2016-11-26] MEDS ORDERED: LIPITOR40 PO (23:08)
[2016-11-26] MEDS ORDERED: L20 PO (23:08)
[2016-11-26] MEDS ORDERED: *UNABLE3 (23:10)
[2016-11-27] MEDS ORDERED: PLAVIX PO (12:56)
[2016-11-27] MEDS ORDERED: PRIN5 PO (12:56)
[2016-11-27] MEDS ORDERED: COUMADIN7.5 MG PO (12:57)
[2016-12-02] MEDS ORDERED: C25 PO (14:47)
== END 2016-10-29 16:47 | disposition home or self-care (01) | DRG 280 ==
LOC: ER 02:04 → ER/OF 04:24 → 5NO 09:32
PROVIDERS: Emergency Medicine; Internal Medicine
DX: I50.23 Acute on chronic systolic (congestive) heart failure (principal); J96.91 Respiratory failure, unspecified with hypoxia; I21.09 ST elevation (STEMI) myocardial infarction involving other coronary artery of anterior wall; R57.9 Shock, unspecified; I24.0 Acute coronary thrombosis not resulting in myocardial infarction; I25.10 Atherosclerotic heart disease of native coronary artery without angina pectoris; Z95.5 Presence of coronary angioplasty implant and graft; N18.3 Chronic kidney disease, stage 3 (moderate); Z79.82 Long term (current) use of aspirin; Z79.02 Long term (current) use of antithrombotics/antiplatelets; E11.22 Type 2 diabetes mellitus with diabetic chronic kidney disease; Z79.84 Long term (current) use of oral hypoglycemic drugs; F32.9 Major depressive disorder, single episode, unspecified
CPT/HCPCS: 36600; 71010; 71275; 80048; 80053; 82805; 82962; 83036; 83735; 83880; 84100; 84443; 84484; 85025; 85610; 85730; 93005; 96374; 96375; 99285; A9270-GY; C9113; J1940; J2405; Q9967